=== PATIENT | male | born 1975 | race American Indian/Alaskan Native ===

== ENCOUNTER 2023-03-30 09:48 | Day surgery (SDC) | payer BC ==
[~2023-03-30] VITALS: Ht 177.8 cm; Wt 130.5 kg
[~2023-03-30 09:48] MED LIST: AMLO10CA30 PO; HYDR-3490 PO; NS 1,000 ML IV ONE
[2023-03-30] MEDS ORDERED: propofoL 200 MG/20 ML VIAL As Ordered ONE ×2 (12:07→12:19)
[2023-03-30 12:33] VITALS: TEMP 98.2
[2023-03-30 12:46] VITALS: BP 122/81; O2SAT 96
== END 2023-03-30 12:55 | disposition home or self-care (01) ==
LOC: M OPP 09:48
PROVIDERS: ATTEND Internal Medicine Gastroenterology
DX: Z12.11 Encounter for screening for malignant neoplasm of colon (principal); D12.0 Benign neoplasm of cecum; K57.30 Diverticulosis of large intestine without perforation or abscess without bleeding; K64.4 Residual hemorrhoidal skin tags; K64.8 Other hemorrhoids; F17.220 Nicotine dependence, chewing tobacco, uncomplicated; G47.30 Sleep apnea, unspecified; Z99.89 Dependence on other enabling machines and devices; Z79.899 Other long term (current) drug therapy